=== PATIENT | female | born 1945 | race Caucasian/White ===

== ENCOUNTER → 2020-09-28 | Outpatient (CLI) | payer MEDICARE ==
[~2020-09-28] MED LIST: DCS100C PO; MULT-608 PO; OMEP-10 PO; POTA10CA43 PO; WRF5T PO
--- NOTE | 2020-09-28 16:30 | Diagnostic Imaging Report ---
INDICATION: Knee pain. TECHNIQUE: Three views of the right knee were obtained. FINDINGS: The alignment is normal. There are mild degenerative changes. There is no fracture or dislocation. There is no joint effusion. IMPRESSION: Mild degenerative changes; otherwise, unremarkable. Dictated by: Dictated on workstation # [id number]
== END ==
LOC: RAD 14:50
DX: M17.11 Unilateral primary osteoarthritis, right knee (principal)
CPT/HCPCS: 73562

== ENCOUNTER 2022-01-22 21:00 | Emergency (ER) | payer MEDICARE, OTHER ==
[~2022-01-22] VITALS: Ht 160 cm; Wt 91.6 kg
[2022-01-22 21:17] VITALS: BP 153/69
[2022-01-22] MEDS ORDERED: WARF4TAB9 (21:23)
[2022-01-22] MEDS ORDERED: OMEP40CA6 (21:23)
[2022-01-22] MEDS ORDERED: LISI5TAB20 (21:23)
[2022-01-22] MEDS ORDERED: LOVA20TA2 (21:23)
[2022-01-22] MEDS ORDERED: METF-397 (21:23)
[2022-01-22] MEDS ORDERED: HYDR25TA4 (21:23)
--- NOTE | 2022-01-22 21:36 | ED EENT ---
History of Present Illness General Chief Complaint: Ear Problems Stated Complaint: DIZZY - RIGHT EAR PAIN - COUGH - CONGESTION Nursing Triage Note: c/o right ear pain, dizziness today. Source: patient History of Present Illness Date Seen by Provider: Jan 22, 2022 Time Seen by Provider: 21:34 Initial Comments Patient presents to the ER for evaluation of difficulty hearing in the right ear, mild discomfort and disequilibrium. She states that her symptoms started today and that she has had Severity: moderate Location: ear (R) Associated Symptoms: sinus infection Allergies and Home Medications Allergies Coded Allergies: Chlorpheniramine (Unverified Allergy, Unknown, 09/09/10) Codeine (Unverified Allergy, Unknown, 09/09/10) Nsaids (Unverified Allergy, Unknown, 09/09/10) Pseudoephedrine (Unverified Allergy, Unknown, 09/09/10) Tramadol (Unverified Allergy, Unknown, 09/09/10) Patient Home Medication List Home Medication List Reviewed: Yes Hydrochlorothiazide (Hydrochlorothiazide) 25 Mg Tablet, (Reported) Entered as Reported by: ALYSE ERICKSON on 01/22/222122 Last Action: New Order Lisinopril (Lisinopril) 5 Mg Tablet, (Reported) Entered as Reported by: ALYSE ERICKSON on 01/22/222122 Last Action: New Order Lovastatin (Lovastatin) 20 Mg Tablet, (Reported) Entered as Reported by: ALYSE ERICKSON on 01/22/222122 Last Action: New Order Metformin HCl (Metformin HCl) 500 Mg Tablet, (Reported) Entered as Reported by: ALYSE ERICKSON on 01/22/222122 Last Action: New Order Omeprazole (Omeprazole) 40 Mg Capsule., (Reported) Entered as Reported by: ALYSE ERICKSON on 01/22/222122 Last Action: New Order Warfarin Sodium (Jantoven) 4 Mg Tablet, (Reported) Entered as Reported by: ALYSE ERICKSON on 01/22/222122 Last Action: New Order Discontinued Medications Omeprazole (Prilosec 20 Mg) 20 Mg Capsule., 20 MG PO BID, (Reported) Discontinued Reason: No Longer Taking Entered as Reported by: ELODIA ANDERSON on 09/17/10 1125 Last Action: Discontinued Warfarin Sod (Coumadin 5 Mg) 5 Mg Tab, 5 MG PO DAILY@18, (Reported) Discontinued Reason: No Longer Taking Entered as Reported by: ELODIA ANDERSON on 09/17/10 1125 Last Action: Discontinued Review of Systems Review of Systems Constitutional: other (disequalibrium ) Eyes: No Symptoms Reported Ears: Pain, Other (difficulty hearing from right ear) Nose: no symptoms reported Mouth: no symptoms reported Throat: no symptoms reported; denies pain, denies swelling Respiratory: no symptoms reported; No cough Cardiovascular: no symptoms reported Musculoskeletal: no symptoms reported Skin: no symptoms reported Neurological: No Symptoms Reported Hematologic/Lymphatic: No Symptoms Reported Past Fhlytxo-Gryzgu-Zypekh Hx Patient Social History Tobacco Use?: No Substance use?: No Alcohol Use?: No Pt feels they are or have been: No Past Medical History Surgery/Hospitalization HX: htn, gerd, niddm, high cholesterol Reproductive Disorders: No Physical Exam Vital Signs Vital Signs - First Documented 01/22/22 21:17 Temp 36.3 Pulse 78 Resp 18 B/P (MAP) 153/69 (97) Pulse Ox 95 O2 Delivery Room Air Height, Weight, BMI Height: '" Weight: lbs. oz. kg; 35.00 BMI Method: General Appearance: WD/WN, no apparent distress Eyes: bilateral eye normal inspection, bilateral eye PERRL, bilateral eye EOMI Ears: bilateral ear auricle normal, bilateral ear other (Complete cerumen impaction on the right side. Partial cerumen impaction on the left side) Nose: normal inspection Mouth/Throat: normal mouth inspection Neck: non-tender Respiratory: lungs clear Neurologic/Psychiatric: oriented x 3 Skin: normal color Progress/Results/Core Measures Results/Orders Lab Results Laboratory Tests Test 01/22/22 21:46 Range/Units SARS-CoV-2 RNA (RT-PCR) Detected H Not Detecte My Orders Orders - WILFREDO COREA Covid 19 Inhouse Test (01/22/22 21:31) Isolation Central Supply Req (01/22/22 21:31) Vital Signs/I&O 01/22/22 21:17 Temp 36.3 Pulse 78 Resp 18 B/P (MAP) 153/69 (97) Pulse Ox 95 O2 Delivery Room Air Blood Pressure Mean: 97 Departure Communication (Admissions) Ear irrigation successful on the right side. Patient feels markedly better. Will monitor symptoms and home and return if worse. No evidence/suspicion of CVA, MO, PE, VTE. Impression Primary Impression: Impacted cerumen Additional Impressions: Sinusitis COVID-19 Disposition: 01 HOME, SELF-CARE Condition: Stable Departure-Patient Inst. Decision time for Depature: 22:22 Referrals: [facility] [place] Patient Instructions: Sinusitis, Adult ED, Ear Wax Impaction (DC), COVID-19 (DC) Add. Discharge Instructions: Please monitor your symptoms carefully. You will need to follow CDC guidelines for quarantining for the next 7 days. If you have progressing or worsening of symptoms then you need to return to the emergency room immediately for further evaluation. All discharge instructions reviewed with patient and/or family. Voiced understanding. WILFREDO COREA Jan 22, 2022 21:36
== END 2022-01-22 22:40 | disposition home or self-care (01) ==
LOC: EDUNIT# 21:00 → ER 21:01
DX: U07.1 COVID-19 (principal); J32.9 Chronic sinusitis, unspecified; H61.23 Impacted cerumen, bilateral
CPT/HCPCS: 87636; 99283

== ENCOUNTER → 2022-05-17 | Outpatient (CLI) | payer MEDICARE, OTHER ==
[~2022-05-17] MED LIST changes: +HYDR25TA4; +LISI5TAB20; +LOVA20TA2; +METF-397; +OMEP40CA6; +WARF4TAB9
== END ==
LOC: CARD 11:30
PROVIDERS: ATTEND Nurse Practitioner Family
DX: R00.1 Bradycardia, unspecified (principal); R53.83 Other fatigue
CPT/HCPCS: 93005

== ENCOUNTER → 2022-06-23 | Outpatient (CLI) | payer MEDICARE, OTHER | LOC: CARD 13:00 | PROVIDERS: ATTEND Internal Medicine Cardiovascular Disease | DX: I34.0 Nonrheumatic mitral (valve) insufficiency (principal); I48.92 Unspecified atrial flutter | CPT/HCPCS: 93225; 93226; C8929; 93306 ==

== ENCOUNTER → 2022-06-28 | Outpatient (CLI) | payer MEDICARE, OTHER ==
[~2022-06-28] MED LIST changes: +CATHETER FLUSH 10 ML SYR IVP PRN; +REGADENOSON 0.4 MG/5 ML SYR (LEXISCAN) IV ONE
[2022-06-28 09:45] VITALS: BP 146/76
--- NOTE | 2022-06-29 09:20 | STRESS TEST ---
DATE OF SERVICE: 06/28/2022 RESTING AND POST REGADENOSON TECHNETIUM-99M TETROFOSMIN SPECT CT IMAGING ORDERING PHYSICIAN: Dr. Valentino. PRIMARY PHYSICIAN: Dr. Mathew. CLINICAL DIAGNOSIS: Shortness of breath. Baseline images were carried out after injection of 10.22 mCi technetium-99m Tetrofosmin. This is followed by 0.4 mg regadenoson and 29.1 mCi of technetium-99m Tetrofosmin for stress imaging. Electrocardiogram showed atrial fibrillation at baseline. It did not change significantly with the regadenoson infusion. Review of images at rest and following stress does not indicate any significant perfusion defects consistent with significant myocardial ischemia or infarction. Gated images showed normal global left ventricular systolic function with normal regional wall motion. Left ventricular ejection fraction is calculated to be 81%. CONCLUSIONS: 1. No evidence of any significant myocardial ischemia or infarction on this study. 2. Normal regional wall motion. 3. Normal global left ventricular systolic function with a calculated ejection fraction of 81%. 4. Atrial fibrillation with a controlled ventricular response throughout the study. Job ID: [id number] DocumentID: [id number] Dictated Date: 06/29/2022 08:35:23 Circular Saw Operator Date: 06/29/2022 09:14:00 Dictated By: KERWIN VALENTINO MD; ROLA; FACP; FACC;
== END ==
LOC: CARD 07:55
PROVIDERS: ATTEND Internal Medicine Cardiovascular Disease
DX: I48.91 Unspecified atrial fibrillation (principal)
CPT/HCPCS: 78452; 93017; A9502

== ENCOUNTER 2022-10-27 05:33 | Outpatient (CLI) | payer MEDICARE, OTHER ==
[~2022-10-27] VITALS: Ht 157.8 cm; Wt 81.4 kg
[~2022-10-27 05:33] MED LIST changes: -CATHETER FLUSH 10 ML SYR IVP PRN; -REGADENOSON 0.4 MG/5 ML SYR (LEXISCAN) IV ONE
[2022-10-27] MEDS ORDERED: GLYC1DRO OP (13:34)
[2022-10-27] MEDS ORDERED: POTA99CA PO (13:34)
[2022-10-27] MEDS ORDERED: WARF2TAB8 PO (13:34)
[2022-10-27] MEDS ORDERED: FLUT1DIS26 IH (13:34)
[2022-10-27] MEDS ORDERED: MULT-1136 PO (13:34)
[2022-10-27] MEDS ORDERED: RT-ALBUINH INH (13:34)
[2022-10-27] MEDS ORDERED: DIPH-1122 PO (13:34)
[2022-10-27] MEDS ORDERED: WARF4TAB9 PO (13:34)
[2022-10-27] MEDS ORDERED: ACET-2055 PO (13:34)
[2022-10-27] MEDS ORDERED: DOCU-143 PO (13:34)
== END 2022-10-27 13:39 | disposition home or self-care (01) ==
LOC: PREOP 05:33
PROVIDERS: ATTEND Specialist
DX: Z01.818 Encounter for other preprocedural examination (principal)

== ENCOUNTER 2022-11-04 07:59 | Day surgery (SDC) | payer MEDICARE, OTHER ==
[~2022-11-04] VITALS: Ht 157.8 cm; Wt 81.4 kg
[~2022-11-04 07:59] MED LIST changes: +ACET-2055 PO; +DIPH-1122 PO; +DOCU-143 PO; +FLUT1DIS26 IH; +GLYC1DRO OP; +MULT-1136 PO; +POTA99CA PO; +RT-ALBUINH INH; +WARF2TAB8 PO; +WARF4TAB9 PO
[2022-11-04] MEDS ORDERED: MOXIFLOXACIN OPHTH SOLN 5 MG/ML 0.3 ML SYRINGE OP ONE (08:30)
[2022-11-04] MEDS ORDERED: POVIDONE (BETADINE) OPHTH SOLN 5% 30 ML OP ONE (08:30)
[2022-11-04] MEDS ORDERED: TIMOLOL 0.5% (CATARACTS) 0.3 ML BTL OU PRN (08:30)
[2022-11-04 08:37] VITALS: BP 155/83
[2022-11-04] MEDS: TETRACAINE 0.5% OPHTH SOLN 4 ML BTL (SINGLE DOSE ONLY) OU PRN ×3 (08:42→08:52)
[2022-11-04] MEDS: PHENYLEPHRINE 10% OPHTH (NEO-SYN) 5 ML BTL OU SCH ×3 (08:43→08:53)
[2022-11-04] MEDS: TROPICAMIDE 1% OPH SOLN (MYDRIACYL) 15 ML BTL OP SCH ×3 (08:43→08:52)
[2022-11-04] MEDS ORDERED: MIDAZOLAM 2 MG/2 ML (VERSED) VIAL ONE (08:45)
--- NOTE | 2022-11-04 09:45 | Ophthalmology Operative Report ---
Cataract removal/placement IOL PREOPERATIVE DIAGNOSIS: Cataract Right Eye POSTOPERATIVE DIAGNOSIS: Cataract Right Eye PROCEDURE: Cataract removal and placement of posterior chamber implant, right eye SURGEON: Shravan Crooks ANESTHESIA: Topical with sedation COMPLICATIONS: None ESTIMATED BLOOD LOSS: Minimal DESCRIPTION OF PROCEDURE: After proper informed consent was obtained, the patient, a 77 female, was taken to the Operating Room and the right eye was anesthetized with tetracaine. The right eye was then prepped and draped in the usual manner. A wire lid speculum was placed. A paracentesis was made at the left hand position. Preservative free lidocaine was injected into the anterior chamber followed by viscoelastic. A clear corneal incision was made in the temporal position. A capsulorrhexis was preformed and the central nuclear and cortical material were removed. The posterior capsule was polished and [place] 22.0 AU00T0 IOL was placed into the capsular bag. The residual viscoelastic was aspirated and balanced saline solution was injected into the anterior chamber. Moxifloxacin was injected into the anterior chamber. The wound was checked and found to be water tight. The patient tolerated the procedure well without complications. SHRAVAN CROOKS MD Nov 04, 2022 09:45
--- NOTE | 2022-11-04 09:47 | Ophthalmologist Pre-Op Note ---
Pre-Operative Progress Note H&P Reviewed The H&P was reviewed, patient examined and no changes noted. Date H&P Reviewed: Nov 04, 2022 Time H&P Reviewed: 09:23 Pre-Op Dx Cataract, Right Eye YANIV CROOKS MD Nov 04, 2022 09:47
[2022-11-04 09:49] VITALS: BP 139/97
[2022-11-04] MEDS ORDERED: acetaZOLAMIDE ER 500 MG CAP (DIAMOX SEQUELS) PO ONE (11:00)
--- NOTE | 2022-11-04 13:04 | Anesthesia-General Post-Op ---
MAC Patient Condition Mental Status/LOC: Same as Preop Cardiovascular: Satisfactory Nausea/Vomiting: Absent Respiratory: Satisfactory Pain: Controlled Complications: Absent Post Op Complications Complications None Follow Up Care/Instructions Patient Instructions None needed. Anesthesiology Discharge Order Discharge Order Patient is doing well, no complaints, stable vital signs, no apparent adverse anesthesia problems. No complications reported per nursing. LOREN TANG CRNA Nov 04, 2022 13:04
== END 2022-11-04 09:55 | disposition home or self-care (01) ==
LOC: SDC 07:59
PROVIDERS: ATTEND Specialist
DX: H25.9 Unspecified age-related cataract (principal); E11.36 Type 2 diabetes mellitus with diabetic cataract; Z79.84 Long term (current) use of oral hypoglycemic drugs; I48.92 Unspecified atrial flutter; Z79.01 Long term (current) use of anticoagulants
CPT/HCPCS: 66984; 93005; V2632

== ENCOUNTER 2022-11-15 05:39 | Outpatient (CLI) | payer MEDICARE, OTHER | END 2022-11-15 15:47 | disposition home or self-care (01) | LOC: PREOP 05:39 | PROVIDERS: ATTEND Specialist | DX: Z01.818 Encounter for other preprocedural examination (principal) ==

== ENCOUNTER 2022-11-18 08:45 | Day surgery (SDC) | payer MEDICARE, OTHER ==
[~2022-11-18] VITALS: Ht 157.5 cm; Wt 81.4 kg
[2022-11-18] MEDS ORDERED: MIDAZOLAM 2 MG/2 ML (VERSED) VIAL ONE (08:47)
[2022-11-18] MEDS: TETRACAINE 0.5% OPHTH SOLN 4 ML BTL (SINGLE DOSE ONLY) OU PRN ×3 (08:55→09:09)
[2022-11-18] MEDS ORDERED: POVIDONE (BETADINE) OPHTH SOLN 5% 30 ML OP ONE (09:00)
[2022-11-18] MEDS ORDERED: TIMOLOL 0.5% (CATARACTS) 0.3 ML BTL OU PRN (09:00)
[2022-11-18] MEDS ORDERED: MOXIFLOXACIN OPHTH SOLN 5 MG/ML 0.3 ML SYRINGE OP ONE (09:00)
[2022-11-18] MEDS: TROPICAMIDE 1% OPH SOLN (MYDRIACYL) 15 ML BTL OP SCH ×3 (09:02→09:10)
[2022-11-18] MEDS: PHENYLEPHRINE 10% OPHTH (NEO-SYN) 5 ML BTL OU SCH ×3 (09:02→09:10)
[2022-11-18 09:13] VITALS: BP 156/75
--- NOTE | 2022-11-18 09:33 | Ophthalmologist Pre-Op Note ---
Pre-Operative Progress Note H&P Reviewed The H&P was reviewed, patient examined and no changes noted. Date H&P Reviewed: November 18, 2022 Time H&P Reviewed: 09:32 Pre-Op Dx Cataract, Left Eye YANIV CROOKS MD November 18, 2022 09:33
--- NOTE | 2022-11-18 10:00 | Ophthalmology Operative Report ---
Cataract removal/placement IOL PREOPERATIVE DIAGNOSIS: Cataract Left Eye POSTOPERATIVE DIAGNOSIS: Cataract Left Eye PROCEDURE: Cataract removal and placement of posterior chamber implant, left eye SURGEON: Shravan Crooks ANESTHESIA: Topical with sedation COMPLICATIONS: None ESTIMATED BLOOD LOSS: Minimal DESCRIPTION OF PROCEDURE: After proper informed consent was obtained, the patient, a 77 female, was taken to the Operating Room and the left eye was anesthetized with tetracaine. The left eye was then prepped and draped in the usual manner. A wire lid speculum was placed. A paracentesis was made at the left hand position. Preservative free lidocaine was injected into the anterior chamber followed by viscoelastic. A clear corneal incision was made in the temporal position. A capsulorrhexis was preformed and the central nuclear and cortical material were removed. The posterior capsule was polished and an [place] 22.5 AU00T0 was placed into the capsular bag. The residual viscoelastic was aspirated and balanced saline solution was injected into the anterior chamber. Moxifloxacin was injected into the anterior chamber. The wound was checked and found to be water tight. The patient tolerated the procedure well without complications. SHRAVAN CROOKS MD November 18, 2022 10:00
[2022-11-18 10:05] VITALS: BP 134/62
[2022-11-18] MEDS ORDERED: acetaZOLAMIDE ER 500 MG CAP (DIAMOX SEQUELS) PO ONE (11:00)
--- NOTE | 2022-11-18 11:27 | Anesthesia-General Post-Op ---
MAC Patient Condition Mental Status/LOC: Same as Preop Cardiovascular: Satisfactory Nausea/Vomiting: Absent Respiratory: Satisfactory Pain: Controlled Complications: Absent Post Op Complications Complications None Follow Up Care/Instructions Patient Instructions None needed. Anesthesiology Discharge Order Discharge Order Patient is doing well, no complaints, stable vital signs, no apparent adverse anesthesia problems. No complications reported per nursing. CHOCO SALDANA CRNA November 18, 2022 11:27
== END 2022-11-18 10:11 | disposition home or self-care (01) ==
LOC: SDC 08:45
PROVIDERS: ATTEND Specialist
DX: E11.36 Type 2 diabetes mellitus with diabetic cataract (principal); H25.9 Unspecified age-related cataract; Z79.84 Long term (current) use of oral hypoglycemic drugs
CPT/HCPCS: 66984; 82947; V2632